=== PATIENT | female | born 1975 | race American Indian/Alaskan Native ===

== ENCOUNTER 2020-01-24 12:21 | Observation (INO) | payer OTHER ==
[2020-01-24] MEDS ORDERED: Sodium Chloride 0.9% 2.5 ML Syringe FLUSH PRN (13:16)
[2020-01-24] MEDS ORDERED: Sodium Chloride 0.9% 10 ML Syringe FLUSH PRN (13:16)
[2020-01-24 13:42] LABS: BLOOD UREA NITROGEN,BUN 2 mg/dL (7.0-18.0); CARBON DIOXIDE,CO2 22.5 mmol/L (21.0-32.0); CHLORIDE,CL 104 mmol/L (98-107); GLUCOSE RANDOM 192 mg/dL (74-106); LIPASE 39 U/L (73-393); POTASSIUM,K 3.3 mmol/L (3.5-5.1); SODIUM,NA 138 mmol/L (136-145)
--- NOTE | 2020-01-24 13:47 | EDM.PDOC ---
ED HPI GENERAL MEDICAL PROBLEM - General Chief Complaint: General Stated Complaint: PASSING OUT Time Seen by Provider: 01/24/20 13:16 Source of Information: Reports: Patient History Limitations: Reports: No Limitations - History of Present Illness INITIAL COMMENTS - FREE TEXT/NARRATIVE: HISTORY AND PHYSICAL: History of present illness: Patient is a , 44-year-old female who presents to the ED today with concern of a low hemoglobin level. Patient states that she has had a heavy menstrual cycle over the past 2 weeks and is still continuing to bleed today. Patient states she has been having issues with syncopal events, dizziness/lightheadedness, and had a fall 5 days ago when getting out of the shower. Patient states that at that time she hit her head and landed on her buttock. Patient states after the fall, she was seen and evaluated at the clinic in [place], [place]. Patient states that she had lab work and imaging done at that time and was told that she had a "broken tailbone "and was called after her lab work was completed stating she needed to be seen in the emergency room due to her hemoglobin level being low. Patient states she has had continues pain of her tailbone region since the fall 5 days ago. Patient states she has not had a fall in 5 days and other than the sore buttocks, lightheadedness, is not having any symptoms at this time. Patient states she is continuing to have heavy vaginal bleeding and is passing clots and has used 2 pads since this morning but today her bleeding is promotion specialist than it has been over the past 2 weeks. She states some days she goes through 2 pads in 1 hour and passing clots as well. Patient states many years ago she had to have a blood transfusion due to heavy menstrual cycle done by Dr. Rivera and had a D&C performed at that time but it has been many years ago according to patient. Patient states she has a history of asthma but denies any other health history. Patient denies fever, chills, chest pain, shortness of breath, or cough. Denies headache, neck stiff ness, change in vision. Denies nausea, vomiting, abdominal pain, diarrhea, constipation, or dysuria. Has not noted any blood in urine or stool. Patient has been eating and drinking appropriately. Review of systems: As per history of present illness and below otherwise all systems reviewed and negative. Past medical history: As per history of present illness and as reviewed below otherwise noncontributory. Surgical history: As per history of present illness and as reviewed below otherwise noncontributory. Social history: See social history for further information Family history: As per history of present illness and as reviewed below otherwise noncontributory. Physical exam: General: Patient is alert, oriented, and in no acute distress. Patient sitting comfortably on exam table. Mildly tachycardic at 105-110s on initial exam otherwise vitals stable and reviewed by me. HEENT: Atraumatic, normocephalic, pupils equal and reactive bilaterally, negative for conjunctival pallor or scleral icterus, mucous membranes moist, TMs normal bilaterally, throat clear, neck supple, nontender, trachea midline. No drooling or trismus noted. No meningeal signs. No hot potato voice noted. Lungs: Clear to auscultation, breath sounds equal bilaterally, chest nontender. Heart: S1S2, tachycardic 105 but regular rate and rhythm without overt murmur Abdomen: Soft, nondistended, nontender. Negative for masses or hepatosplenomegaly. Negative for costovertebral tenderness. Pelvis: Stable nontender. Genitourinary: Harvesting Supervisor at bedside, Madalyn Aly External genitalia grossly unremarkable. There is a mild to moderate amount of dark red blood in the vaginal vault. Negative cervical motion tenderness. Negative uterine or adnexal tenderness. Rectal: Harvesting Supervisor at bedside, Jojo Aly No obvious hemorrhoids, lesions, or masses noted. Tone intact. Hemoccult negative. Skin: Intact, warm, dry. No lesions or rashes noted. Extremities/musculoskeletal: Patient does have pain with palpation of the coccyx but does have full range of motion of the complete spine and was able to ambulate into the ED. Otherwise, atraumatic, negative for cords or calf pain. Neurovascular unremarkable. Neuro: Awake, alert, oriented. Cranial nerves II through XII unremarkable. Cerebellum unremarkable. Motor and sensory unremarkable throughout. Exam no nfocal. Notes: See Dr. Mendez documentation for EKG interpretation. Hemoccult negative. Call and spoke to SENIOR NATIONAL ACCOUNT MANAGER on-call, Dr. Escoto, and thoroughly discussed patients case and the hospitalist storeperson, Dr. Fox and will admit to Dr. Fox with consult to Dr. Escoto. Patient does appear to be uncomfortable from her coccyx injury and offered pain medication but she declines at this time. Patient does desire pain medication and more comfortable after medication given. Patient was tested for COVID19 due to admission requirements which has come back positive. Denies any symptoms at this time and denies any contact with known COVID19 individuals. Voices understanding and is agreeable to plan of care. Denies any further questions or concerns at this time. Diagnostics: EKG, CBC, CMP, UA, Trop, CXR, Type and Screen, COVID19 Therapeutics: NS, Packed RBC (pain medication was offered to patient but she declines at this time), morphine 2mg IV Impression: Menorrhagia with symptomatic anemia Syncope H/O recent coccyx injury COVID 19 infection Hyperglycemia, uncomplicated Plan: Admit to observation to Dr. Fox, hospitalist, with consult to VIKRAM Coleman on telemetry Critical care time is exclusive of billable procedures and the time to perform these procedures. Critical care time was used to prevent vital system organ failure and deterioration. Critical care time includes bedside management and high-complexity decision making requiring my highest level of mental preparedness and attention. This includes reviewing the patient's chart and prior medical records, ordering and reviewing interpreting laboratory studies and imaging results, interpretation of vital signs and EKG, pulse oximetry, and discussion with the admitting team along with EMS and nursing staff. Patient presented with critical lab values that required immediate intervention, and immediate need for blood transfusion with transfer to the medical floor for additional close monitoring and continuation of treatment CC Time: 45 minutes Definitive disposition and diagnosis as appropriate pending reevaluation and review of above. Buttock Pain Score (Numeric/FACES): 10 - Related Data Allergies Allergy/AdvReac Type Severity Reaction Status Date / Time No Known Allergies Allergy Verified 01/25/20 01:56 Home Meds: Home Meds Amitriptyline [Elavil] 25 mg PO DAILY 01/24/20 [History] Amoxicillin 01/24/20 [History] Ibuprofen [Motrin] 200 mg PO ASDIRECTED 01/24/20 [History] Past Medical History HEENT History: Reports: None Cardiovascular History: Reports: None Respiratory History: Reports: Asthma Gastrointestinal History: Reports: None Genitourinary History: Reports: None SENIOR NATIONAL ACCOUNT MANAGER History: Reports: None Musculoskeletal History: Reports: None Neurological History: Reports: None Psychiatric History: Reports: None Endocrine/Metabolic History: Reports: None Oncologic (Cancer) History: Reports: None Dermatologic History: Reports: None - Infectious Disease History Infectious Disease History: Reports: Chicken Pox - Past Surgical History GI Surgical History: Reports: Appendectomy Female Surgical History: Reports: Section Social & Family History - Caffeine Use Caffeine Use: Reports: Soda - Recreational Drug Use Recreational Drug Use: Yes Recreational Drug Type: Reports: Marijuana/Hashish ED ROS GENERAL - Review of Systems Review Of Systems: Comprehensive ROS is negative, except as noted in HPI. ED EXAM, GENERAL - Physical Exam Exam: See Below (see dictation) Course - Vital Signs Last Recorded V/S: Last Vital Signs Temp 97.8 F 01/25/20 08:44 Pulse 80 01/25/20 08:44 Resp 20 01/25/20 08:44 BP 132/82 01/25/20 08:44 Pulse Ox 95 01/25/20 08:44 - Orders/Labs/Meds Orders: Active Orders 24 hr Category Date Time Status Cardiac Monitoring [RC] . DIRECTED Care 01/24/20 13:16 Active EKG Documentation Completion [RC] STAT Care 01/24/20 13:16 Active Hemoccult [Fecal Occult Blood Collection] [RC] Care 01/24/20 13:17 Active ASDIRECTED Verify Patient Consent Obtain [RC] ASDIRECTED Care 01/24/20 13:30 Active COLD ABS [BBK] Stat Lab 01/24/20 13:59 Results TYPE AND SCREEN [BBK] Stat Lab 01/24/20 13:59 Results Sodium Chloride 0.9% [Saline Flush] Med 01/24/20 13:16 Active 10 ml FLUSH ASDIRECTED PRN Sodium Chloride 0.9% [Saline Flush] Med 01/24/20 13:16 Active 2.5 ml FLUSH ASDIRECTED PRN Saline Lock Insert [OM.PC] Stat Oth 01/24/20 13:16 Ordered Transfuse Red Blood Cells [COMM] Stat Oth 01/24/20 13:29 Ordered Medication Orders Amitriptyline HCl (Elavil) 25 mg PO BEDTIME [facility] Last Admin: 01/24/20 21:36 Dose: 25 mg Documented by: VALERIE Sodium Chloride (Normal Saline) 1,000 mls @ 125 mls/hr IV Q8H [facility] Last Admin: 01/25/20 02:23 Dose: 125 mls/hr Documented by: Infusion: 01/25/20 02:19 Dose: 125 mls/hr Documented by: Admin: 01/24/20 16:44 Dose: 125 mls/hr Documented by: SWATHI Morphine Sulfate (Morphine) 2 mg IVPUSH Q2H PRN PRN Reason: Pain (severe 7-10) Ondansetron HCl (Zofran) 4 mg IVPUSH Q4H PRN PRN Reason: Nausea Oxycodone HCl (Oxycodone) 5 mg PO Q4H PRN PRN Reason: Pain Last Admin: 01/25/20 05:15 Dose: 5 mg Documented by: Admin: 01/24/20 21:36 Dose: 5 mg Documented by: Admin: 01/24/20 17:51 Dose: 5 mg Documented by: SWATHI Sodium Chloride (Saline Flush) 2.5 ml FLUSH ASDIRECTED PRN PRN Reason: Keep Vein Open Last Admin: 01/24/20 13:19 Dose: 2.5 ml Documented by: SWAHTI Sodium Chloride (Saline Flush) 10 ml FLUSH ASDIRECTED PRN PRN Reason: Keep Vein Open Last Admin: 01/24/20 13:19 Dose: 10 ml Documented by: SWATHI Labs: Laboratory Tests 01/24/20 01/24/20 01/24/20 Range/Units 13:09 13:09 13:09 WBC 7.74 (4.0-11.0) K/uL RBC 2.42 L (4.30-5.90) M/uL Hgb 5.9 L (12.0-16.0) g/dL Hct 20.3 L (36.0-46.0) % MCV 83.9 (80.0-98.0) fL MCH 24.4 L (27.0-32.0) pg MCHC 29.1 L (31.0-37.0) g/dL RDW Std Deviation 67.5 H (28.0-62.0) fl RDW Coeff of Eduardo 22 H (11.0-15.0) % Plt Count 165 (150-400) K/uL MPV 10.00 (7.40-12.00) fL Neut % (Auto) 80.8 H (48.0-80.0) % Lymph % (Auto) 14.3 L (16.0-40.0) % Bourbon % (Auto) 4.5 (0.0-15.0) % Eos % (Auto) 0.3 (0.0-7.0) % Baso % (Auto) 0.1 (0.0-1.5) % Neut # (Auto) 6.3 H (1.4-5.7) K/uL Lymph # (Auto) 1.1 (0.6-2.4) K/uL Bourbon # (Auto) 0.4 (0.0-0.8) K/uL Eos # (Auto) 0.0 (0.0-0.7) K/uL Baso # (Auto) 0.0 (0.0-0.1) K/uL Nucleated RBC % 0.2 /100WBC Nucleated RBCs # 0 K/uL Sodium 138 (136-145) mmol/L Potassium 3.3 L (3.5-5.1) mmol/L Chloride 104 (98-107) mmol/L Carbon Dioxide 22.5 (21.0-32.0) mmol/L BUN 2 L (7.0-18.0) mg/dL Creatinine 0.7 (0.6-1.0) mg/dL Est Cr Clr Drug Dosing 79.42 mL/min Estimated GFR (MDRD) > 60.0 ml/min Glucose 192 H (74-106) mg/dL Hemoglobin A1c (4.5-6.2) % Calcium 7.8 L (8.5-10.1) mg/dL Total Bilirubin 1.0 (0.2-1.0) mg/dL AST 58 H (15-37) IU/L ALT 21 (14-63) IU/L Alkaline Phosphatase 222 H (46-116) U/L Troponin I < 0.050 (0.000-0.056) ng/mL Total Protein 7.8 (6.4-8.2) g/dL Albumin 2.5 L (3.4-5.0) g/dL Globulin 5.3 H (2.6-4.0) g/dL Albumin/Globulin Ratio 0.5 L (0.9-1.6) Lipase 39 L (73-393) U/L HCG, Qual NEGATIVE (NEG) SARS-CoV-2 RNA (JACKIE) (NEGATIVE) Blood Type Antibody Screen Cold Antibody Screen Crossmatch 01/24/20 01/24/20 01/24/20 Range/Units 13:59 13:59 13:59 WBC (4.0-11.0) K/uL RBC (4.30-5.90) M/uL Hgb (12.0-16.0) g/dL Hct (36.0-46.0) % MCV (80.0-98.0) fL MCH (27.0-32.0) pg MCHC (31.0-37.0) g/dL RDW Std Deviation (28.0-62.0) fl RDW Coeff of Eduardo (11.0-15.0) % Plt Count (150-400) K/uL MPV (7.40-12.00) fL Neut % (Auto) (48.0-80.0) % Lymph % (Auto) (16.0-40.0) % Bourbon % (Auto) (0.0-15.0) % Eos % (Auto) (0.0-7.0) % Baso % (Auto) (0.0-1.5) % Neut # (Auto) (1.4-5.7) K/uL Lymph # (Auto) (0.6-2.4) K/uL Bourbon # (Auto) (0.0-0.8) K/uL Eos # (Auto) (0.0-0.7) K/uL Baso # (Auto) (0.0-0.1) K/uL Nucleated RBC % /100WBC Nucleated RBCs # K/uL Sodium (136-145) mmol/L Potassium (3.5-5.1) mmol/L Chloride (98-107) mmol/L Carbon Dioxide (21.0-32.0) mmol/L BUN (7.0-18.0) mg/dL Creatinine (0.6-1.0) mg/dL Est Cr Clr Drug Dosing mL/min Estimated GFR (MDRD) ml/min Glucose (74-106) mg/dL Hemoglobin A1c 5.4 (4.5-6.2) % Calcium (8.5-10.1) mg/dL Total Bilirubin (0.2-1.0) mg/dL AST (15-37) IU/L ALT (14-63) IU/L Alkaline Phosphatase (46-116) U/L Troponin I (0.000-0.056) ng/mL Total Protein (6.4-8.2) g/dL Albumin (3.4-5.0) g/dL Globulin (2.6-4.0) g/dL Albumin/Globulin Ratio (0.9-1.6) Lipase (73-393) U/L HCG, Qual (NEG) SARS-CoV-2 RNA (JACKIE) (NEGATIVE) Blood Type Cancelled O POSITIVE Antibody Screen Cancelled NEGATIVE Cold Antibody Screen POSITIVE Crossmatch See Detail See Detail 01/24/20 Range/Units 14:18 WBC (4.0-11.0) K/uL RBC (4.30-5.90) M/uL Hgb (12.0-16.0) g/dL Hct (36.0-46.0) % MCV (80.0-98.0) fL MCH (27.0-32.0) pg MCHC (31.0-37.0) g/dL RDW Std Deviation (28.0-62.0) fl RDW Coeff of Eduardo (11.0-15.0) % Plt Count (150-400) K/uL MPV (7.40-12.00) fL Neut % (Auto) (48.0-80.0) % Lymph % (Auto) (16.0-40.0) % Bourbon % (Auto) (0.0-15.0) % Eos % (Auto) (0.0-7.0) % Baso % (Auto) (0.0-1.5) % Neut # (Auto) (1.4-5.7) K/uL Lymph # (Auto) (0.6-2.4) K/uL Bourbon # (Auto) (0.0-0.8) K/uL Eos # (Auto) (0.0-0.7) K/uL Baso # (Auto) (0.0-0.1) K/uL Nucleated RBC % /100WBC Nucleated RBCs # K/uL Sodium (136-145) mmol/L Potassium (3.5-5.1) mmol/L Chloride (98-107) mmol/L Carbon Dioxide (21.0-32.0) mmol/L BUN (7.0-18.0) mg/dL Creatinine (0.6-1.0) mg/dL Est Cr Clr Drug Dosing mL/min Estimated GFR (MDRD) ml/min Glucose (74-106) mg/dL Hemoglobin A1c (4.5-6.2) % Calcium (8.5-10.1) mg/dL Total Bilirubin (0.2-1.0) mg/dL AST (15-37) IU/L ALT (14-63) IU/L Alkaline Phosphatase (46-116) U/L Troponin I (0.000-0.056) ng/mL Total Protein (6.4-8.2) g/dL Albumin (3.4-5.0) g/dL Globulin (2.6-4.0) g/dL Albumin/Globulin Ratio (0.9-1.6) Lipase (73-393) U/L HCG, Qual (NEG) SARS-CoV-2 RNA (JACKIE) POSITIVE H (NEGATIVE) Blood Type Antibody Screen Cold Antibody Screen Crossmatch Meds: Medications Generic Name Dose Route Start Last Admin Trade Name Freq PRN Reason Stop Dose Admin Amitriptyline HCl 25 mg 01/24/20 21:00 01/24/20 21:36 Elavil PO 25 mg BEDTIME CHARLINE Administration Sodium Chloride 1,000 mls @ 125 mls/hr 01/24/20 16:15 01/25/20 02:23 Normal Saline IV 125 mls/hr Q8H CHARLINE Administration Morphine Sulfate 2 mg 01/24/20 16:08 Morphine IVPUSH Q2H PRN Pain (severe 7-10) Ondansetron HCl 4 mg 01/24/20 16:08 Zofran IVPUSH Q4H PRN Nausea Oxycodone HCl 5 mg 01/24/20 16:33 01/25/20 05:15 Oxycodone PO 5 mg Q4H PRN Administration Pain Sodium Chloride 2.5 ml 01/24/20 13:16 01/24/20 13:19 Saline Flush FLUSH 2.5 ml ASDIRECTED PRN Administration Keep Vein Open Sodium Chloride 10 ml 01/24/20 13:16 01/24/20 13:19 Saline Flush FLUSH 10 ml ASDIRECTED PRN Administration Keep Vein Open Discontinued Medications Generic Name Dose Route Start Last Admin Trade Name Lupe PRN Reason Stop Dose Admin Sodium Chloride 1,000 mls @ 999 mls/hr 01/24/20 14:37 01/24/20 14:48 Normal Saline IV 01/24/20 15:37 999 mls/hr STAT ONE Administration Morphine Sulfate 2 mg 01/24/20 14:41 01/24/20 14:48 Morphine IVPUSH 01/24/20 14:42 2 mg ONETIME ONE Administration Departure - Departure Time of Disposition: 14:36 Disposition: Refer to Observation Clinical Impression: Symptomatic anemia, Hyperglycemia Menorrhagia Qualifiers: Menorrhagia type: premenopausal Qualified Code(s): N92.4 - Excessive bleeding in the premenopausal period Syncope Qualifiers: Syncope type: unspecified Qualified Code(s): R55 - Syncope and collapse Injury of coccyx Qualifiers: Encounter type: subsequent encounter Qualified Code(s): S39.92XD - Unspecified injury of lower back, subsequent encounter - Discharge Information Sepsis Event Note (ED) - Evaluation Sepsis Screening Result: No Definite Risk - My Orders Last 24 Hours: My Active Orders 01/24/20 13:16 Cardiac Monitoring [RC] . DIRECTED EKG Documentation Completion [RC] STAT Sodium Chloride 0.9% [Saline Flush] 10 ml FLUSH ASDIRECTED PRN Sodium Chloride 0.9% [Saline Flush] 2.5 ml FLUSH ASDIRECTED PRN Saline Lock Insert [OM.PC] Stat 01/24/20 13:17 Hemoccult [Fecal Occult Blood Collection] [RC] ASDIRECTED 01/24/20 13:29 Transfuse Red Blood Cells [COMM] Stat 01/24/20 13:30 Verify Patient Consent Obtain [RC] ASDIRECTED 01/24/20 13:59 COLD ABS [BBK] Stat TYPE AND SCREEN [BBK] Stat - Assessment/Plan Last 24 Hours: My Active Orders 01/24/20 13:16 Cardiac Monitoring [RC] . DIRECTED EKG Documentation Completion [RC] STAT Sodium Chloride 0.9% [Saline Flush] 10 ml FLUSH ASDIRECTED PRN Sodium Chloride 0.9% [Saline Flush] 2.5 ml FLUSH ASDIRECTED PRN Saline Lock Insert [OM.PC] Stat 01/24/20 13:17 Hemoccult [Fecal Occult Blood Collection] [RC] ASDIRECTED 01/24/20 13:29 Transfuse Red Blood Cells [COMM] Stat 01/24/20 13:30 Verify Patient Consent Obtain [RC] ASDIRECTED 01/24/20 13:59 COLD ABS [BBK] Stat TYPE AND SCREEN [BBK] Stat
--- NOTE | 2020-01-24 13:51 | PCM.PRNOTE ---
- Free Text/Narrative Note: Time:1346 Rate:99 Rhythm: sinus Intervals: normal ST-T wave: inverted T wave V2 Overall: normal sinus rhythm with nonspecific T wave inversion
--- NOTE | 2020-01-24 14:33 | CR ---
INDICATION: SYNCOPE TECHNIQUE: Chest 1 view. COMPARISON: None. FINDINGS: Cardiovascular and mediastinum: Heart size and vasculature are normal in caliber and appearance. Mediastinum is within normal limits. Lungs and pleural space: Lungs are clear. No sign of infiltrate or mass. No sign of pleural effusion. No pneumothorax. Bones and soft tissues: No significant findings. IMPRESSION: Unremarkable chest. Dictated by: Octavio Araiza MD @ 01/24/2020 14:31:38 (Electronically Signed)
[2020-01-24] MEDS ORDERED: Sodium Chloride 0.9% 1,000 ML IV ONE (14:37)
[2020-01-24] MEDS ORDERED: Morphine 2 MG/ML SYRINGE IVPUSH ONE (14:41)
--- NOTE | 2020-01-24 15:03 | PCM.HP.2 ---
H&P History of Present Illness - General Date of Service: 01/24/20 Admit Problem/Dx: Admission Diagnosis/Problem Admission Diagnosis/Problem Anemia Source of Information: Patient History Limitations: Reports: No Limitations - History of Present Illness Initial Comments - Free Text/Narative: This 44-year-old female, G4, P3, with past medical history of anemia secondary to menorrhagia presented to the ER today after she was told by PCP to be evaluated secondary to hemoglobin. She reports that for the past 2 weeks she has been having heavy menses with syncopal episodes at home. She also reports lightheadedness dizziness and palpitations. She reports that she could go through 2 pads in 1 hour with quarter size clots of bleeding. She reports she did fall a few days ago and was seen in the ER in [place]. She was told there that she" broke her tailbone" and has had significant pain with that. She continues to feel extremely fatigued. She reports this happened many years ago and saw Dr. Rivera performed a D&C and she received blood transfusion at that time. She has had 4 children 3 C-sections and one lateral. She reports her third child was born prematurely at 24 weeks due to incompetent cervix and he a couple days later. She reports no fevers or chills. No chest pain or shortness of breath. No abdominal pain no dysuria. No focal neurol ogical deficits she reports that she intermittently smokes, drinks every 1 to 2 weeks and does smoke marijuana on a daily basis. She reports that she has been exposed to individuals positive for COVID-19. Denies having fevers chills or shortness of breath. Denies being tested in the past. In the ER no leukocytosis noted red blood cell count 2.42, hemoglobin 5.9, hematocrit 20.3 potassium 3.3 glucose elevated at 192 AST is 58 alk phos 222 hCG negative sinus rhythm noted on EKG with no ischemic changes chest x-ray negative. She is noted to be tachycardic with a blood pressure of 123/74 she is 98% on room air. Dr. Escoto was consulted by the ER for evaluation she recommended hospitalist admission with her to consult. Patient will be admitted observation for menorrhagia causing symptomatic anemia. Patient has been n.p.o. since last evening(01/22) per her report. Buttock Pain Score (Numeric/FACES): 10 - Related Data Allergies/Adverse Reactions: Allergies Allergy/AdvReac Type Severity Reaction Status Date / Time No Known Allergies Allergy Verified 01/24/20 12:54 Home Medications: Home Meds Amitriptyline [Elavil] 25 mg PO DAILY 01/24/20 [History] Amoxicillin 01/24/20 [History] Ibuprofen [Motrin] 200 mg PO ASDIRECTED 01/24/20 [History] Past Medical History HEENT History: Reports: None Cardiovascular History: Reports: None. Denies: Afib, Blood Clots/VTE/DVT, CAD Respiratory History: Reports: Asthma Gastrointestinal History: Reports: None Genitourinary History: Reports: None. 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 Denies: Fibroids : 4 Para: 3 Musculoskeletal History: Reports: None Neurological History: Reports: None Psychiatric History: Reports: None Endocrine/Metabolic History: Reports: None. Denies: Diabetes, Type II, Obesity/BMI 30+ Oncologic (Cancer) History: Reports: None Dermatologic History: Reports: None - Infectious Disease History Infectious Disease History: Reports: Chicken Pox - Past Surgical History GI Surgical History: Reports: Appendectomy Female Surgical History: Reports: Section Social & Family History - Caffeine Use Caffeine Use: Reports: Soda - Recreational Drug Use Recreational Drug Use: Yes Recreational Drug Type: Reports: Marijuana/Hashish H&P Review of Systems - Review of Systems: Review Of Systems: See Below General: Reports: Malaise, Weakness, Fatigue. Denies: Fever, Chills HEENT: Reports: No Symptoms. Denies: Headaches, Sore Throat, Visual Changes Pulmonary: Reports: No Symptoms. Denies: Shortness of Breath Cardiovascular: Reports: Palpitations, Syncope. Denies: Chest Pain Gastrointestinal: Reports: No Symptoms. Denies: Abdominal Pain, Black Stool, Bloody Stool Genitourinary: Reports: Abnormal Menses. Denies: Dysuria, Frequency Musculoskeletal: Reports: No Symptoms Skin: Reports: No Symptoms. Denies: Wound Psychiatric: Reports: No Symptoms. Denies: Anxiety Neurological: Reports: No Symptoms Hematologic/Lymphatic: Reports: No Symptoms Immunologic: Reports: No Symptoms Exam - Exam Exam: See Below - Vital Signs Vital Signs: Last Vital Signs Temp 97.2 F 01/24/20 12:56 Pulse 99 01/24/20 14:34 Resp 22 H 01/24/20 14:34 BP 124/76 01/24/20 14:34 Pulse Ox 96 01/24/20 14:34 Weight: 63.503 kg - Exam General: Alert, Oriented, Cooperative HEENT: Conjunctiva Clear, Mucosa Moist & [place], Posterior Pharynx Clear Neck: Supple, Trachea Midline Lungs: Clear to Auscultation, Normal Respiratory Effort Cardiovascular: Regular Rhythm, Tachycardia GI/Abdominal Exam: Normal Bowel Sounds, Soft, No Distention Back Exam: Normal Inspection, Full Range of Motion, Other (Tenderness noted to tailbone no bruising reports this has hurt since she fell.) Extremities: Normal Inspection, Normal Range of Motion, Non-Tender Neuro Extensive - Mental Status: Alert, Oriented x3 Neuro Extensive - Motor, Sensory, Reflexes: CN II-XII Intact, Normal Gait - Patient Data Lab Results Last 24 hrs: Laboratory Results - last 24 hr 01/24/20 01/24/20 01/24/20 Range/Units 13:09 13:09 13:09 WBC 7.74 (4.0-11.0) K/uL RBC 2.42 L (4.30-5.90) M/uL Hgb 5.9 L (12.0-16.0) g/dL Hct 20.3 L (36.0-46.0) % MCV 83.9 (80.0-98.0) fL MCH 24.4 L (27.0-32.0) pg MCHC 29.1 L (31.0-37.0) g/dL RDW Std Deviation 67.5 H (28.0-62.0) fl RDW Coeff of Eduardo 22 H (11.0-15.0) % Plt Count 165 (150-400) K/uL MPV 10.00 (7.40-12.00) fL Neut % (Auto) 80.8 H (48.0-80.0) % Lymph % (Auto) 14.3 L (16.0-40.0) % Early % (Auto) 4.5 (0.0-15.0) % Eos % (Auto) 0.3 (0.0-7.0) % Baso % (Auto) 0.1 (0.0-1.5) % Neut # (Auto) 6.3 H (1.4-5.7) K/uL Lymph # (Auto) 1.1 (0.6-2.4) K/uL Early # (Auto) 0.4 (0.0-0.8) K/uL Eos # (Auto) 0.0 (0.0-0.7) K/uL Baso # (Auto) 0.0 (0.0-0.1) K/uL Nucleated RBC % 0.2 /100WBC Nucleated RBCs # 0 K/uL Sodium 138 (136-145) mmol/L Potassium 3.3 L (3.5-5.1) mmol/L Chloride 104 (98-107) mmol/L Carbon Dioxide 22.5 (21.0-32.0) mmol/L BUN 2 L (7.0-18.0) mg/dL Creatinine 0.7 (0.6-1.0) mg/dL Est Cr Clr Drug Dosing 79.42 mL/min Estimated GFR (MDRD) > 60.0 ml/min Glucose 192 H (74-106) mg/dL Calcium 7.8 L (8.5-10.1) mg/dL Total Bilirubin 1.0 (0.2-1.0) mg/dL AST 58 H (15-37) IU/L ALT 21 (14-63) IU/L Alkaline Phosphatase 222 H (46-116) U/L Troponin I < 0.050 (0.000-0.056) ng/mL Total Protein 7.8 (6.4-8.2) g/dL Albumin 2.5 L (3.4-5.0) g/dL Globulin 5.3 H (2.6-4.0) g/dL Albumin/Globulin Ratio 0.5 L (0.9-1.6) Lipase 39 L (73-393) U/L HCG, Qual NEGATIVE (NEG) Result Diagrams: 01/24/20 13:09 01/24/20 13:09 Sepsis Event Note - Evaluation Sepsis Screening Result: No Definite Risk - Focused Exam Vital Signs: Vital Signs Temp Pulse Resp BP Pulse Ox 01/24/20 14:34 99 22 H 124/76 96 01/24/20 14:04 106 H 20 118/70 99 01/24/20 12:56 97.2 F 108 H 20 123/74 98 - Problem List (1) Symptomatic anemia SNOMED Code(s): 373287534 ICD Code: D64.9 - ANEMIA, UNSPECIFIED Status: Acute Current Visit: Yes (2) Menorrhagia SNOMED Code(s): 270758486 ICD Code: N92.0 - EXCESSIVE AND FREQUENT MENSTRUATION WITH REGULAR CYCLE Status: Acute Current Visit: Yes Qualifiers: Menorrhagia type: premenopausal Qualified Code(s): N92.4 - Excessive bleeding in the premenopausal period (3) Syncope SNOMED Code(s): 947564186 ICD Code: R55 - SYNCOPE AND COLLAPSE Status: Acute Current Visit: Yes Qualifiers: Syncope type: unspecified Qualified Code(s): R55 - Syncope and collapse Problem List Initiated/Reviewed/Updated: Yes Orders Last 24hrs: Active Orders 24 hr Category Date Time Status Admission Status [Patient Status] [ADT] Stat ADT 01/24/20 14:26 Active Cardiac Monitoring [RC] . DIRECTED Care 01/24/20 13:16 Active EKG Documentation Completion [RC] STAT Care 01/24/20 13:16 Active Hemoccult [Fecal Occult Blood Collection] [RC] Care 01/24/20 13:17 Active ASDIRECTED Notify Provider Consults [RC] ASDIRECTED Care 01/24/20 14:29 Active Verify Patient Consent Obtain [RC] ASDIRECTED Care 01/24/20 13:30 Active Consult to Physician [CONS] Stat Cons 01/24/20 14:27 Active CORONAVIRUS COVID-19 JACKIE [MOLEC] Stat Lab 01/24/20 14:18 Received RED BLOOD CELLS LP [BBK] Stat Lab 01/24/20 13:29 Ordered TYPE AND SCREEN [BBK] Stat Lab 01/24/20 13:30 Ordered UA RFX DANIEL AND CULT IF INDIC [URIN] Stat Lab 01/24/20 13:16 Ordered Sodium Chloride 0.9% [Normal Saline] 1,000 ml Med 01/24/20 14:37 Active IV STAT Sodium Chloride 0.9% [Saline Flush] Med 01/24/20 13:16 Active 10 ml FLUSH ASDIRECTED PRN Sodium Chloride 0.9% [Saline Flush] Med 01/24/20 13:16 Active 2.5 ml FLUSH ASDIRECTED PRN Saline Lock Insert [OM.PC] Stat Oth 01/24/20 13:16 Ordered Transfuse Red Blood Cells [COMM] Stat Oth 01/24/20 13:29 Ordered Medication Orders Sodium Chloride (Normal Saline) 1,000 mls @ 999 mls/hr IV STAT ONE Stop: 01/24/20 15:37 Last Admin: 01/24/20 14:48 Dose: 999 mls/hr Documented by: SWATHI Sodium Chloride (Saline Flush) 2.5 ml FLUSH ASDIRECTED PRN PRN Reason: Keep Vein Open Last Admin: 01/24/20 13:19 Dose: 2.5 ml Documented by: SWATHI Sodium Chloride (Saline Flush) 10 ml FLUSH ASDIRECTED PRN PRN Reason: Keep Vein Open Last Admin: 01/24/20 13:19 Dose: 10 ml Documented by: SWATHI Assessment/Plan Comment:: This 44-year-old female admitted with menorrhagia resulting in symptomatic anemia and syncope 1. Menorrhagia -2 units PRBCs ordered in the ER to be transfused -We will order 2 more units to be on hold -Continue IV fluids -Keep n.p.o. until consultation with Dr. Escoto -Strict I's and O's and measure pads -Monitor on telemetry -Encouraged to get up with help so she does not fall in the hospital 2. Back pain -Acute due to recent syncopal episode and broken tailbone -We will give oxycodone 5 mg every 4 hours as needed pain -Heat and ice as needed 3. COVID-19 infection -Currently appears to be asymptomatic -Supportive care and monitor symptoms VTE prophylaxis: SCDs only due to acute bleeding Dispo 2 days CODE STATUS: Full code - Mortality Measure Prognosis:: Good
[2020-01-24 15:46] LABS: HEMOGLOBIN A1C 5.4 % (4.5-6.2)
[2020-01-24] MEDS ORDERED: Ondansetron 4 MG/2 ML SDV IVPUSH PRN (16:08)
[2020-01-24] MEDS ORDERED: Morphine 2 MG/ML SYRINGE IVPUSH PRN (16:08)
[2020-01-24] MEDS: Sodium Chloride 0.9% 1,000 ML IV SCH (16:44)
[2020-01-24] MEDS: oxyCODONE 5 MG Tab PO PRN ×2 (17:51→21:36)
--- NOTE | 2020-01-24 18:51 | US ---
INDICATION: Abnormal uterine bleeding TECHNIQUE: Ultrasound pelvis transvaginal for better assessment or to better visualize the endometrium. Real-time sonographic images with spectral and color Doppler imaging of the ovaries were obtained. COMPARISON: None FINDINGS: Uterus: 10.2 x 4.1 x 3.8 cm. The uterine myometrium demonstrates grossly preserved echotexture. The uterus is somewhat retroverted in position. There is a trace amount of fluid within the endometrial canal. There is demonstration of a simple likely nabothian cyst in the lower uterine segment which somewhat obscures detail of the endometrial canal. The ovaries are grossly preserved in echogenicity with demonstration of mild asymmetrically prominent right greater than left ovary with multiple peripheral follicles otherwise, the ovaries retain preserved blood flow. Cul-de-sac: [id number] free fluid. IMPRESSION: Mildly limited evaluation of the endometrial canal due to posterior acoustic enhancement from a nabothian cyst in the lower uterine segment. Trace fluid in the endometrial and endocervical canals is appreciated. Mild asymmetrical prominence of the right greater than left ovary which demonstrates multiple large follicles in a somewhat peripheral distribution. Otherwise, no definite evidence of mass. If there remains persisting concern for dysfunctional uterine bleeding follow-up with hysterosonogram and direct visualization versus MRI of the female pelvis for improved characterization is recommended. Dictated by Phillip Meraz MD @ Jan 24 2020 6:31PM Signed by Dr. Phillip Meraz @ Jan 24 2020 6:51PM
[2020-01-24] MEDS ORDERED: Amitriptyline 25 MG Tab PO SCH (21:00)
[2020-01-25] MEDS: Sodium Chloride 0.9% 1,000 ML IV SCH ×2 (02:23→10:16)
[2020-01-25 03:56] LABS: BLOOD UREA NITROGEN,BUN 3 mg/dL (7.0-18.0); CARBON DIOXIDE,CO2 26.9 mmol/L (21.0-32.0); CHLORIDE,CL 105 mmol/L (98-107); GLUCOSE RANDOM 109 mg/dL (74-106); POTASSIUM,K 3.6 mmol/L (3.5-5.1); SODIUM,NA 137 mmol/L (136-145)
[2020-01-25] MEDS: oxyCODONE 5 MG Tab PO PRN ×2 (05:15→12:18)
--- NOTE | 2020-01-25 15:12 | PCM.DCSUM1 ---
Discharge Summary - Discharge Data Discharge Date: 01/25/20 Discharge Disposition: Home, Self-Care 01 Condition: Stable - Referral to Home Health Primary Care Physician: Yoel Marcelo MD - Patient Summary/Data Consults: Consultations 01/24/20 14:27 Consult to Physician [CONS] Stat Hospital Course: This 44-year-old female, G4, P3, with past medical history of anemia secondary to menorrhagia presented to the ER after she was told by PCP to be evaluated secondary to low hemoglobin. She reports that for the past 2 weeks she has been having heavy menses with syncopal episodes at home. She also reports lightheadedness dizziness and palpitations. She reports that she could go through 2 pads in 1 hour with quarter size clots of bleeding. She reports she did fall a few days ago and was seen in the ER in [place]. She was told there that she" broke her tailbone" and has had significant pain with that. She continues to feel extremely fatigued. She reports this happened many years ago and saw Dr. Rivera performed a D&C and she received blood transfusion at that time. She has had 4 children 3 C-sections and one lateral. She reports her th ird child was born prematurely at 24 weeks due to incompetent cervix and he a couple days later. She reports no fevers or chills. No chest pain or shortness of breath. No abdominal pain no dysuria. No focal neurological deficits she reports that she intermittently smokes, drinks every 1 to 2 weeks and does smoke marijuana on a daily basis. She reports that she has been exposed to individuals positive for COVID-19. Denies having fevers chills or shortness of breath. Denies being tested in the past. In the ER no leukocytosis noted red blood cell count 2.42, hemoglobin 5.9, he matocrit 20.3 potassium 3.3 glucose elevated at 192 AST is 58 alk phos 222 hCG negative sinus rhythm noted on EKG with no ischemic changes chest x-ray negative. She is noted to be tachycardic with a blood pressure of 123/74 she is 98% on room air. She was admitted and transfused 4 units of pRBC. After 3rd unit repeat Hgb was 9.5. Patient reported that her menorrhagia had stopped. Dr. Flores was consulted and recommended outpatient follow up. Patient was eager for discharge home. - Discharge Plan Home Medications: Home Meds Amitriptyline [Elavil] 25 mg PO DAILY 01/24/20 [History] Amoxicillin 01/24/20 [History] Forms: ED Department Discharge Referrals: Yoel Akers MD [Primary Care Provider] - - Discharge Summary/Plan Comment DC Time >30 min.: No - Patient Data Vitals - Most Recent: Last Vital Signs Temp 36.6 C 01/25/20 12:20 Pulse 85 01/25/20 12:20 Resp 18 01/25/20 12:20 BP 133/76 01/25/20 12:20 Pulse Ox 97 01/25/20 12:20 Weight - Most Recent: 63.639 kg I&O - Last 24 hours: Intake & Output 01/25/20 01/25/20 01/25/20 06:59 14:59 22:59 Intake Total 1715 316 Output Total 900 Balance 815 316 Lab Results - Last 24 hrs: Laboratory Results - last 24 hr 01/24/20 01/24/20 01/24/20 Range/Units 13:59 13:59 13:59 WBC (4.0-11.0) K/uL RBC (4.30-5.90) M/uL Hgb (12.0-16.0) g/dL Hct (36.0-46.0) % MCV (80.0-98.0) fL MCH (27.0-32.0) pg MCHC (31.0-37.0) g/dL RDW Std Deviation (28.0-62.0) fl RDW Coeff of Eduardo (11.0-15.0) % Plt Count (150-400) K/uL MPV (7.40-12.00) fL Neut % (Auto) (48.0-80.0) % Lymph % (Auto) (16.0-40.0) % [place] % (Auto) (0.0-15.0) % Eos % (Auto) (0.0-7.0) % Baso % (Auto) (0.0-1.5) % Neut # (Auto) (1.4-5.7) K/uL Lymph # (Auto) (0.6-2.4) K/uL [place] # (Auto) (0.0-0.8) K/uL Eos # (Auto) (0.0-0.7) K/uL Baso # (Auto) (0.0-0.1) K/uL Nucleated RBC % /100WBC Nucleated RBCs # K/uL Sodium (136-145) mmol/L Potassium (3.5-5.1) mmol/L Chloride (98-107) mmol/L Carbon Dioxide (21.0-32.0) mmol/L BUN (7.0-18.0) mg/dL Creatinine (0.6-1.0) mg/dL Est Cr Clr Drug Dosing mL/min Estimated GFR (MDRD) ml/min Glucose (74-106) mg/dL Hemoglobin A1c 5.4 (4.5-6.2) % Calcium (8.5-10.1) mg/dL Magnesium (1.8-2.4) mg/dL Total Bilirubin (0.2-1.0) mg/dL AST (15-37) IU/L ALT (14-63) IU/L Alkaline Phosphatase (46-116) U/L Total Protein (6.4-8.2) g/dL Albumin (3.4-5.0) g/dL Globulin (2.6-4.0) g/dL Albumin/Globulin Ratio (0.9-1.6) Urine Color Urine Appearance Urine pH (5.0-8.0) Ur Specific [place] (1.001-1.035) Urine Protein (NEGATIVE) mg/dL Urine Glucose (UA) (NEGATIVE) mg/dL Urine Ketones (NEGATIVE) mg/dL Urine Occult Blood (NEGATIVE) Urine Nitrite (NEGATIVE) Urine Bilirubin (NEGATIVE) Urine Urobilinogen (<2.0) EU/dL Ur Leukocyte Esterase (NEGATIVE) Urine RBC (0-2/HPF) Urine WBC (0-5/HPF) Ur Epithelial Cells (NONE-FEW) Urine Bacteria (NEGATIVE) Urine Mucus (NONE-MOD) SARS-CoV-2 RNA (JACKIE) (NEGATIVE) Blood Type Cancelled O POSITIVE Antibody Screen Cancelled NEGATIVE Cold Antibody Screen POSITIVE Crossmatch See Detail See Detail 01/24/20 01/24/20 01/25/20 Range/Units 14:18 17:14 03:33 WBC 8.23 (4.0-11.0) K/uL RBC 2.83 L (4.30-5.90) M/uL Hgb 8.1 L (12.0-16.0) g/dL Hct 24.8 L (36.0-46.0) % MCV 87.6 (80.0-98.0) fL MCH 28.6 (27.0-32.0) pg MCHC 32.7 (31.0-37.0) g/dL RDW Std Deviation 60.8 (28.0-62.0) fl RDW Coeff of Eduardo 20 H (11.0-15.0) % Plt Count 131 L (150-400) K/uL MPV 9.60 (7.40-12.00) fL Neut % (Auto) 78.1 (48.0-80.0) % Lymph % (Auto) 16.2 (16.0-40.0) % [place] % (Auto) 5.0 (0.0-15.0) % Eos % (Auto) 0.5 (0.0-7.0) % Baso % (Auto) 0.2 (0.0-1.5) % Neut # (Auto) 6.4 H (1.4-5.7) K/uL Lymph # (Auto) 1.3 (0.6-2.4) K/uL [place] # (Auto) 0.4 (0.0-0.8) K/uL Eos # (Auto) 0.0 (0.0-0.7) K/uL Baso # (Auto) 0.0 (0.0-0.1) K/uL Nucleated RBC % 0.0 /100WBC Nucleated RBCs # 0 K/uL Sodium (136-145) mmol/L Potassium (3.5-5.1) mmol/L Chloride (98-107) mmol/L Carbon Dioxide (21.0-32.0) mmol/L BUN (7.0-18.0) mg/dL Creatinine (0.6-1.0) mg/dL Est Cr Clr Drug Dosing mL/min Estimated GFR (MDRD) ml/min Glucose (74-106) mg/dL Hemoglobin A1c (4.5-6.2) % Calcium (8.5-10.1) mg/dL Magnesium (1.8-2.4) mg/dL Total Bilirubin (0.2-1.0) mg/dL AST (15-37) IU/L ALT (14-63) IU/L Alkaline Phosphatase (46-116) U/L Total Protein (6.4-8.2) g/dL Albumin (3.4-5.0) g/dL Globulin (2.6-4.0) g/dL Albumin/Globulin Ratio (0.9-1.6) Urine Color YELLOW Urine Appearance CLEAR Urine pH 6.5 (5.0-8.0) Ur Specific [place] 1.020 (1.001-1.035) Urine Protein NEGATIVE (NEGATIVE) mg/dL Urine Glucose (UA) NEGATIVE (NEGATIVE) mg/dL Urine Ketones TRACE H (NEGATIVE) mg/dL Urine Occult Blood LARGE H (NEGATIVE) Urine Nitrite NEGATIVE (NEGATIVE) Urine Bilirubin NEGATIVE (NEGATIVE) Urine Urobilinogen 4.0 H (<2.0) EU/dL Ur Leukocyte Esterase NEGATIVE (NEGATIVE) Urine RBC 0-2 (0-2/HPF) Urine WBC 0-2 (0-5/HPF) Ur Epithelial Cells FEW (NONE-FEW) Urine Bacteria FEW (NEGATIVE) Urine Mucus LIGHT (NONE-MOD) SARS-CoV-2 RNA (JACKIE) POSITIVE H (NEGATIVE) Blood Type Antibody Screen Cold Antibody Screen Crossmatch 01/25/20 01/25/20 Range/Units 03:33 09:51 WBC (4.0-11.0) K/uL RBC (4.30-5.90) M/uL Hgb 9.5 L (12.0-16.0) g/dL Hct 27.8 L (36.0-46.0) % MCV (80.0-98.0) fL MCH (27.0-32.0) pg MCHC (31.0-37.0) g/dL RDW Std Deviation (28.0-62.0) fl RDW Coeff of Eduardo (11.0-15.0) % Plt Count (150-400) K/uL MPV (7.40-12.00) fL Neut % (Auto) (48.0-80.0) % Lymph % (Auto) (16.0-40.0) % [place] % (Auto) (0.0-15.0) % Eos % (Auto) (0.0-7.0) % Baso % (Auto) (0.0-1.5) % Neut # (Auto) (1.4-5.7) K/uL Lymph # (Auto) (0.6-2.4) K/uL [place] # (Auto) (0.0-0.8) K/uL Eos # (Auto) (0.0-0.7) K/uL Baso # (Auto) (0.0-0.1) K/uL Nucleated RBC % /100WBC Nucleated RBCs # K/uL Sodium 137 (136-145) mmol/L Potassium 3.6 (3.5-5.1) mmol/L Chloride 105 (98-107) mmol/L Carbon Dioxide 26.9 (21.0-32.0) mmol/L BUN 3 L (7.0-18.0) mg/dL Creatinine 0.6 (0.6-1.0) mg/dL Est Cr Clr Drug Dosing 92.66 mL/min Estimated GFR (MDRD) > 60.0 ml/min Glucose 109 H (74-106) mg/dL Hemoglobin A1c (4.5-6.2) % Calcium 7.4 L (8.5-10.1) mg/dL Magnesium 1.5 L (1.8-2.4) mg/dL Total Bilirubin 2.5 H (0.2-1.0) mg/dL AST 50 H (15-37) IU/L ALT 18 (14-63) IU/L Alkaline Phosphatase 189 H (46-116) U/L Total Protein 7.0 (6.4-8.2) g/dL Albumin 2.3 L (3.4-5.0) g/dL Globulin 4.7 H (2.6-4.0) g/dL Albumin/Globulin Ratio 0.5 L (0.9-1.6) Urine Color Urine Appearance Urine pH (5.0-8.0) Ur Specific [place] (1.001-1.035) Urine Protein (NEGATIVE) mg/dL Urine Glucose (UA) (NEGATIVE) mg/dL Urine Ketones (NEGATIVE) mg/dL Urine Occult Blood (NEGATIVE) Urine Nitrite (NEGATIVE) Urine Bilirubin (NEGATIVE) Urine Urobilinogen (<2.0) EU/dL Ur Leukocyte Esterase (NEGATIVE) Urine RBC (0-2/HPF) Urine WBC (0-5/HPF) Ur Epithelial Cells (NONE-FEW) Urine Bacteria (NEGATIVE) Urine Mucus (NONE-MOD) SARS-CoV-2 RNA (JACKIE) (NEGATIVE) Blood Type Antibody Screen Cold Antibody Screen Crossmatch Med Orders - Current: Current Medications Amitriptyline HCl (Elavil) 25 mg PO BEDTIME CHARLINE Last Admin: 01/24/20 21:36 Dose: 25 mg Documented by: Sodium Chloride (Normal Saline) 1,000 mls @ 125 mls/hr IV Q8H CHARLINE Last Admin: 01/25/20 10:16 Dose: 125 mls/hr Documented by: Morphine Sulfate (Morphine) 2 mg IVPUSH Q2H PRN PRN Reason: Pain (severe 7-10) Ondansetron HCl (Zofran) 4 mg IVPUSH Q4H PRN PRN Reason: Nausea Oxycodone HCl (Oxycodone) 5 mg PO Q4H PRN PRN Reason: Pain Last Admin: 01/25/20 12:18 Dose: 5 mg Documented by: Sodium Chloride (Saline Flush) 2.5 ml FLUSH ASDIRECTED PRN PRN Reason: Keep Vein Open Last Admin: 01/24/20 13:19 Dose: 2.5 ml Documented by: Sodium Chloride (Saline Flush) 10 ml FLUSH ASDIRECTED PRN PRN Reason: Keep Vein Open Last Admin: 01/24/20 13:19 Dose: 10 ml Documented by: Discontinued Medications Sodium Chloride (Normal Saline) 1,000 mls @ 999 mls/hr IV STAT ONE Stop: 01/24/20 15:37 Last Admin: 01/24/20 14:48 Dose: 999 mls/hr Documented by: Morphine Sulfate (Morphine) 2 mg IVPUSH ONETIME ONE Stop: 01/24/20 14:42 Last Admin: 01/24/20 14:48 Dose: 2 mg Documented by:
--- NOTE | 2020-01-27 07:41 | CONS ---
DATE OF CONSULTATION: 01/25/2020 DATE OF : 1975 PRIMARY CARE PHYSICIAN: Baldev Bacon MD REQUESTING PHYSICIAN: Cameron Fox M.D. DIAGNOSIS: Menorrhagia resulting in anemia. For the purpose of this consultation, I did a history on the patient and abdominal examination, but no pelvic examination. I also reviewed her pelvic ultrasound. For a brief history she is 45-year-old patient. She is para 4-0-0- 4. She had 3 sections and 1 vaginal . The patient does have a heavy period for the last 5 years. She bleeds anywhere between 10 to 14 days a month. The patient, at this time, has bled for over 2 weeks and she presented to the emergency room with tiredness, dizziness, and vaginal bleeding, and it is found out her hemoglobin is 5. The patient is admitted for observation and blood transfusion. On examination, the patient is tested positive for COVID-19. Abdominal examination is unremarkable. Pelvic examination is not available at this time. Because of the patient's situation, pelvic ultrasound I reviewed. It shows her uterus is mildly enlarged. There is no fibroid. The endometrial lining is within normal limits and the adnexa is not palpable. ASSESSMENT: This is a 45-year-old patient with a prolonged history of menometrorrhagia resulting in anemia. She most likely needs to have surgery, she needs to have hysterectomy. However, the patient received 3 units of packed cell yesterday, and currently, her hemoglobin is 9.5. I am recommending for her to have another unit of packed cells to get her hemoglobin above 10 and prepare her for surgery. The patient, after she received her last unit of packed cell, I am recommending for her to go home and to do self isolation for 2 weeks, and then after that, she would have an appointment to the office where she would have appropriate pelvic examination and evaluation with possible endometrial biopsy, and if needed, will be scheduled for surgery. ALY / JANIE /[id number]
== END 2020-01-25 16:20 | disposition home or self-care (01) ==
LOC: MW.ED 12:21 → MW.MS 14:26
PROVIDERS: ADMIT Internal Medicine; ATTEND Internal Medicine
DX: D50.0 Iron deficiency anemia secondary to blood loss (chronic) (principal); U07.1 COVID-19; N92.0 Excessive and frequent menstruation with regular cycle; R55 Syncope and collapse; M54.9 Dorsalgia, unspecified; R73.9 Hyperglycemia, unspecified; Z79.899 Other long term (current) drug therapy; Z90.89 Acquired absence of other organs; S39.92XA Unspecified injury of lower back, initial encounter
CPT/HCPCS: 36415; 36430; 71045; 76830; 80053; 81001; 83036; 83690; 83735; 84484; 84703; 85014; 85018; 85025; 86156; 86850; 86900; 86901; 86920; 86921; 86922; 87635; 93005; A9270; J2270; J7030; P9016; 96374; 99291; U0002